=== PATIENT | female | born 1960 | race American Indian/Alaskan Native ===

== ENCOUNTER 2017-03-19 08:12 | Outpatient (CLI) | payer BC ==
--- NOTE | 2017-03-19 09:30 | Magnetic Resonance Report ---
MR LOWER EXTREMITY JOINT LEFT WITHOUT CONTRAST HISTORY: Pain in left knee. TECHNIQUE: Multisequence, multiplanar MRI without contrast. FINDINGS: A large joint effusion extends to the suprapatellar bursa. No popliteal cyst is appreciated. There is a vertical tear in the posterior horn of the medial meniscus which extends to the femoral and tibial articular surfaces. The lateral meniscus is intact. There is advanced cartilage thinning in the medial compartment. There is mild cartilage thinning in the lateral compartment. The retropatellar cartilage is within normal limits. No osteochondral defect. There is mild subchondral bone marrow edema in the medial tibial plateau and medial femoral condyle consistent with contusion. No fracture or bone lesion. The ACL, PCL, MCL, LCL complex and extensor complex are intact. IMPRESSION: Vertical tear in the posterior horn of medial meniscus as described. Cartilage loss which is most pronounced the medial compartment. Mild bone contusion in the medial tibial plateau and medial femoral condyle. Joint effusion.
== END 2017-03-19 08:13 | disposition home or self-care (01) ==
LOC: MRI 08:12
PROVIDERS: ATTEND Orthopaedic Surgery
DX: S83.242A Other tear of medial meniscus, current injury, left knee, initial encounter (principal); S80.02XA Contusion of left knee, initial encounter; I10 Essential (primary) hypertension; X58.XXXA Exposure to other specified factors, initial encounter; Y93.89 Activity, other specified; Y92.89 Other specified places as the place of occurrence of the external cause; Y99.8 Other external cause status
CPT/HCPCS: 73721

== ENCOUNTER 2017-05-08 14:14 | Emergency (ER) | payer BC | END 2017-05-08 14:15 | disposition left against medical advice (07) | LOC: ED 14:14 | DX: M54.2 Cervicalgia (principal); Z53.21 Procedure and treatment not carried out due to patient leaving prior to being seen by health care provider ==

== ENCOUNTER 2017-05-15 13:38 | Outpatient (CLI) | payer BC ==
--- NOTE | 2017-05-15 16:18 | Magnetic Resonance Report ---
MRI CERVICAL SPINE WITHOUT CONTRAST INDICATION: Cervical radiculopathy. COMPARISON: None similar. FINDINGS: Noncontrast multiplanar and multisequence MRI of the cervical spine demonstrates normal craniocervical articulation and cervicomedullary junction. No Chiari malformation. Slight T2 hyperintense cord signal behind C5 as on sagittal image 9, series 3, though not clearly identified on the T1 images. Normal vertebral body stature, alignment and marrow signal. Fairly uniform disc heights. No paraspinal abnormality. On the obtained axial images: C2-C3 is unremarkable. AP cord caliber 7 mm. C3-C4 demonstrates mild diffuse disc bulge/osteophyte complex flattening/indenting the cord ventrally. AP cord caliber approximately 5-6 mm. Right more than left neural foraminal narrowing as well. C4-C5 also demonstrates mild diffuse disc bulge/osteophyte complex with slight ventral cord indentation/flattening. AP cord caliber approximately 7 mm. Mild bilateral facet arthropathy. Right more than left possible neural foraminal narrowing. C5-C6 demonstrates mild to moderate right facet arthropathy. Slight disc bulge/osteophyte complex partially effaces the ventral CSF space. C6-C7 also demonstrates slight disc bulge/osteophyte complex partially effacing the ventral CSF. No cord compression. C7-T1 appears unremarkable. CONCLUSION: Multilevel cervical spondylosis, greatest at C3-C4 and C4-C5, as described. Neurologic territory correlation may also be obtained. Thank you for the opportunity to participate in this patient's care.
== END 2017-05-15 13:39 | disposition home or self-care (01) ==
LOC: MRI 13:38
PROVIDERS: ATTEND Physical Medicine & Rehabilitation
DX: M47.22 Other spondylosis with radiculopathy, cervical region (principal); M12.88 Other specific arthropathies, not elsewhere classified, other specified site
CPT/HCPCS: 72141

== ENCOUNTER 2019-06-13 10:05 | Outpatient (CLI) | payer BC ==
--- NOTE | 2019-06-14 11:30 | Mammography Report ---
DIGITAL SCREENING MAMMOGRAM WITH CAD, 06/13/2019 INDICATION: Routine screening mammography. TECHNIQUE: Digital bilateral 2D mammography was obtained in the craniocaudal and mediolateral obliq ue projections. This examination was interpreted with the benefit of Computer-Aided Detection analysi s. COMPARISON: 06/09/2018 FINDINGS: Breast Density: The breasts are almost entirely fatty. There is no evidence of dominant mass, suspicious calcifications or architectural distortion in eithe r breast. IMPRESSION: No mammographic evidence of malignancy. Follow up recommendation: Routine yearly BI-RADS Category 1: Negative. A "normal" or negative report should not discourage follow up or biopsy of a clinically significant f inding. A written summary of these findings will be mailed to the patient. The patient will be entered into a mammography reporting system which will generate a reminder letter for the patient's next appointmen t at the appropriate interval. The [employer] recommends yearly mammograms starting at age 40 and continuing as l gabriela as a woman is in good health. Breast MRI is recommended for women with an approximate 20-25% or greater lifetime risk of breast cancer, including women with a strong family history of breast or ova mukesh cancer or who have been treated for Hodgkin's disease. Signer Name: Manolo Neely MD Signed: 06/14/2019 11:26 AM Workstation Name: [id number]
== END 2019-06-13 10:06 | disposition home or self-care (01) ==
LOC: MAMMO 10:05
PROVIDERS: ATTEND Obstetrics & Gynecology
DX: Z12.31 Encounter for screening mammogram for malignant neoplasm of breast (principal); Z88.1 Allergy status to other antibiotic agents
CPT/HCPCS: 77067

== ENCOUNTER 2019-07-11 08:43 | Outpatient (CLI) | payer BC ==
[2019-07-11 09:26] LABS: Blood Urea Nitrogen 11 mg/dL (7-17)
--- NOTE | 2019-07-11 10:42 | Cat Scan Report ---
CT ABDOMEN AND PELVIS WITH CONTRAST HISTORY: D49.59 ENDOMETRIAL NEOPLASM/F/U RLQ PAIN. COMPARISON: CT abdomen/pelvis from 08/05/2018 TECHNIQUE: CT images of the abdomen and pelvis were obtained following administration of intravenous contrast. All CT scans at this location are performed using CT dose reduction for ALARA by means of automated exposure control. CONTRAST: 100 ml of intravenous contrast administered. FINDINGS: Lungs/bones: Lung bases are clear. There is DJD in the spine and pelvis with no acute osseous abnorm ality or osseous metastatic disease identified. Abdomen/pelvis: The gallbladder surgically absent. The liver is mildly enlarged but otherwise normal in appearance. The spleen, pancreas, adrenals, kidneys, and proximal GI tract appear unremarkable. There is a small fat-containing umbilical hernia. The urinary bladder is unremarkable. Uterus is surg ically absent. No pelvic free fluid or acute colonic abnormality identified. The terminal ileum and a ppendix appear normal. No pathologic peritoneal or retroperitoneal adenopathy. IMPRESSION: 1. No metastatic disease or acute abnormality identified. 2. Incidental findings as above. Signer Name: Hermilo Wilson MD Signed: 07/11/2019 10:38 AM Workstation Name: [id number]
== END 2019-07-11 08:44 | disposition home or self-care (01) ==
LOC: CT 08:43
PROVIDERS: ATTEND Obstetrics & Gynecology Gynecologic Oncology
DX: K42.9 Umbilical hernia without obstruction or gangrene (principal); D49.59 Neoplasm of unspecified behavior of other genitourinary organ; Z88.1 Allergy status to other antibiotic agents
CPT/HCPCS: 36415; 74177; 82565; 84520; Q9967

== ENCOUNTER 2019-11-02 08:14 | Outpatient (CLI) | payer BC ==
--- NOTE | 2019-11-02 11:53 | Cat Scan Report ---
CT ABDOMEN AND PELVIS WITHOUT CONTRAST HISTORY: Umbilical pain. COMPARISON: 07/11/2019 TECHNIQUE: Routine abdominal and pelvic CT exam performed Without intravenous contrast. Oral contrast was administered. Lack of intravenous contrast limits evaluation of the vascular and solid organs.. All CT scans at this location are performed using CT dose reduction for ALARA by means of automated exposure control. FINDINGS: CT ABDOMEN: Lung Bases: No significant abnormality. Liver: No significant abnormality. Biliary: Normal bile ducts status post cholecystectomy. Spleen: No significant abnormality. Unenlarged. Pancreas: No significant abnormality. Adrenals: No significant abnormality. Kidneys: No significant abnormality. The renal collecting systems and ureters are nondilated. Lymphatics: No lymphadenopathy. Vasculature: No significant abnormality. Bowel/Peritoneum: No significant abnormality. No free air. No free fluid. Normal appendix. CT PELVIC: : Status post hysterectomy. Ovaries are not identified. No adnexal mass or free fluid. Lymphatics: No lymphadenopathy. Osseous Structures: No aggressive appearing osseous lesions. Additional Findings: A fat-containing umbilical hernia. No bowel extends into the hernia. However, th ere is a new irregular 1 cm nodular opacity within the retroumbilical fat which may indicate inflamma tion of either mesenteric or omental fat extending into the hernia. IMPRESSION: 1. A fat containing umbilical hernia with a new 1 cm irregular nodular density within the herniated f at. This may indicate early inflammation. This also may be a finding associated with endometriosis an d would be a more likely possibility if there is a prior history of endometriosis. 2. Status post cholecystectomy and total abdominal hysterectomy. Signer Name: Manolo Neely MD Signed: 11/02/2019 11:49 AM Workstation Name: [id number]
== END 2019-11-02 08:15 | disposition home or self-care (01) ==
LOC: CT 08:14
PROVIDERS: ATTEND Internal Medicine
DX: K42.9 Umbilical hernia without obstruction or gangrene (principal); Z90.49 Acquired absence of other specified parts of digestive tract; Z90.710 Acquired absence of both cervix and uterus
CPT/HCPCS: 74176

== ENCOUNTER 2019-12-27 10:28 | Day surgery (SDC) | payer BC ==
[2019-12-23 09:29] LABS: Hematocrit 38.3 % (30.3-42.9); Hemoglobin 12.8 gm/dl (10.1-14.3); Mean Corpuscular HGB Conc 34 % (30-34); Mean Corpuscular Volume 83 fl (79-97); Platelet Count 482 K/mm3 (140-440); Red Blood Count 4.65 M/mm3 (3.65-5.03); Red Cell Distribution Width 13.6 % (13.2-15.2)
[2019-12-23 09:38] LABS: BUN/Creatinine Ratio 11; Blood Urea Nitrogen 10 mg/dL (7-17); Calcium 9.9 mg/dL (8.4-10.2); Hemolysis Index 8
--- NOTE | 2019-12-26 14:34 | Short Stay Summary ---
Short Stay Documentation Date of service: 12/27/19 - History H&P: obtained from office - Allergies and Medications Current Medications: Allergies Sulfa (Sulfonamide Antibiotics) Adverse Reaction (Verified 12/14/19 15:49) Shortness of Breath Home Medications Medication Instructions Recorded Confirmed Last Taken Type Adult Probiotic 1 tab PO DAILY 12/14/19 12/14/19 Unknown History Lisinopril/Hydrochlorothiazide 20 mg PO DAILY 12/14/19 12/14/19 Unknown History Pantoprazole Sodium 40 mg PO DAILY 12/14/19 12/14/19 Unknown History Vitamin D (Nf) 125 mg PO DAILY 12/14/19 12/14/19 Unknown History - Physical exam General appearance: no acute distress HEENT: Atraumatic Lungs: Normal air movement Neurological: Normal speech - Brief post op/procedure progress note Date of procedure: 12/27/19 (dictation:[id number]) Pre-op diagnosis: abdominal pain; incisional hernia Post-op diagnosis: same (also adhesions in center of abdomen. moderate amount of serous fluid. Lots of inflammatory changes.) Procedure: dx lap lap lysis of adhesions. attempted robotic lysis of adhesions. IVF 1200cc EBL min Anesthesia: GETA Findings: peritoneal lining with inflammatory changes. moderate amount of serous fluid in the abdomen central adhesions to anterior abdominal wall. Surgeon: RODRIGUEZ MILLARD Resident Programs Assistant: STEPHANIE NIELSON Estimated blood loss: minimal Pathology: list (fluid sample for cyto and culture) Specimen disposition: to lab Condition: stable - Hospital course Hospital course: uneventful - Disposition Condition at discharge: Stable Disposition: DC-01 TO HOME OR SELFCARE Short Stay Discharge Plan Activity: advance as tolerated Diet: regular Wound: open to air, keep clean and dry Special Instructions: no heavy lifting Additional Instructions: Post Operative Instructions Activity: no heavy lifting for next 1 week. May shower tomorrow. Pat dry the wound or wounds. Keep incision sites clean and dry After surgery, start with a light diet. Consider starting with liquids. If you do well, you can advance to a regular diet as you feel comfortable. Apply an ice pack to the wound or wounds for 10-20 minutes at a time. Do this at least 4-5 times a day. You can do it more if he would like. Pain Medication Schedule for the first 2 days after surgery: Gabapentin 400mg twice a day Celebrex (celecoxib) 200mg twice a day Tylenol 500mg four times a day (every 6 hours) After the first 2 days, then take alternating doses of ibuprofen and Tylenol as needed for pain. Take 600 mg of ibuprofen every 6 hours as needed. Take 500 mg of Tylenol every 6 hours as needed. You should alternate these 2 medicines. Make sure you take the ibuprofen with food. It is very important that you use the prescription narcotic pain medicine (hydrocodone) only for very severe pain. Do not take the narcotic medicine before you try using all the medications listed above. We will call you in a couple of days to see how youre doing. If you have any questions or concerns, always feel free to call the clinic ([phone]) at any time. Follow up with: CATIA LEE MD [Primary Care Provider] - 7 Days RODRIGUEZ MILLARD MD [Staff Physician] - 14 Days Forms: Outpatient Surgery DC Inst. Prescriptions: Celecoxib [celeBREX] 200 mg PO BID #4 capsule Gabapentin 400 mg PO BID #4 capsule HYDROcodone/APAP 5-325 [[place] 5-325 mg TAB] 1 each PO Q6HR PRN #15 tablet PRN Reason: Pain , Severe (7-10)
--- NOTE | 2019-12-27 09:39 | Anesthesia Day of Surgery ---
Anesthesia Day of Surgery - Day of Surgery Patient Examined: Yes Patient H&P Reviewed: Yes Patient is NPO: Yes
--- NOTE | 2019-12-27 09:39 | Anesthesia Consultation ---
Anesthesia Consult and Med Hx Date of service: 12/27/19 - Airway Anesthetic Teeth Evaluation: Good ROM Head & Neck: Adequate Mental/Hyoid Distance: Adequate Mallampati Class: Class III Intubation Access Assessment: Possibly Difficult - Pulmonary Exam CTA: Yes - Cardiac Exam Cardiac Exam: RRR - Pre-Operative Health Status ASA Pre-Surgery Classification: ASA3 Proposed Anesthetic Plan: General - Pulmonary Hx Asthma: Yes Hx Pneumonia: Yes (07/2019; resolved) Hx Sleep Apnea: Yes (no CPAP) - Cardiovascular System Hx Hypertension: Yes (took antihypertensives this morning) Hx Heart Attack/AMI: No Hx Percutaneous Transluminal Coronary Angioplasty (PTCA): No - Central Nervous System CVA: No Hx Back Pain: Yes Hx Psychiatric Problems: No - Endocrine Hx Renal Disease: No Hx Liver Disease: No Hx Insulin Dependent Diabetes: No Hx Non-Insulin Dependent Diabetes: No Hx Thyroid Disease: No - Other Systems Hx Cancer: Yes (hx uterine cancer s/p hysterectomy) Hx Obesity: Yes (BMI 42) - Additional Comments Anesthesia Medical History Comments: No hx anesthetic complications.
[~2019-12-27 10:28] MED LIST: ACETAMINOPHEN 500 MG TAB PO NR; ACETAMINOPHEN 500 MG TAB PO ONE; BACTERIOSTATIC SODIUM CHLORIDE 0.9% 30 ML VIAL INFILTRATI ONE; CELECOXIB 200 MG CAP PO NR; GABAPENTIN 400 MG CAP PO SCH; LACTATED RINGERS 1,000 ML IV SCH; MIDAZOLAM 2 MG/2 ML INJ IV SCH; MIDAZOLAM 2 MG/2 ML INJ ONE; ONDANSETRON 4 MG/2 ML INJ IV SCH; ONDANSETRON 4 MG/2 ML INJ ONE; SCOPOLAMINE TRANSDERMAL PATCH 72 HR TD ONE; SCOPOLAMINE TRANSDERMAL PATCH 72 HR TD SCH; ceFAZolin/Water 2 GM/20 ML 2 GM/20 ML SYRINGE IV NR; fentaNYL 100 MCG/2 ML INJ IV PRN
[2019-12-27] MEDS ORDERED: BUPIVACAINE-EPINEPHRINE/PF 0.5%-1:200,000 (30 ML) VIAL INFILTRATI ONE ×2 (11:15→13:30)
[2019-12-27] MEDS ORDERED: LIDOCAINE (1%) 10 MG/1 ML VIAL 20 ML MDV ONE (11:15)
[2019-12-27] MEDS ORDERED: ePHEDrine SULFATE 50 MG/1 ML INJ ONE (11:23)
[2019-12-27] MEDS ORDERED: SUCCINYLCHOLINE CHLORIDE 200 MG/10 ML INJ MDV ONE (11:29)
[2019-12-27] MEDS ORDERED: PHENYLEPHRINE/NS 1,000 MCG/10 ML SYRINGE (OR USE) IV ONE (11:29)
[2019-12-27] MEDS ORDERED: ONDANSETRON 4 MG/2 ML INJ ONE (11:29)
[2019-12-27] MEDS ORDERED: GLYCOPYRROLATE 0.4 MG/2 ML INJ ONE ×2 (11:29→11:30)
[2019-12-27] MEDS ORDERED: NEOSTIGMINE 10MG/10 ML INJ MDV ONE (11:29)
[2019-12-27] MEDS ORDERED: ROCURONIUM 50 MG/5 ML INJ IV ONE (11:29)
[2019-12-27] MEDS ORDERED: fentaNYL 100 MCG/2 ML INJ ONE (11:29)
[2019-12-27] MEDS ORDERED: LIDOCAINE MPF (2%) 20 MG/1 ML VIAL 5 ML ONE (11:29)
[2019-12-27] MEDS ORDERED: HYDROmorphone 1 MG/1 ML INJ ONE ×2 (11:30→13:42)
[2019-12-27] MEDS ORDERED: propofoL 200 MG/20 ML VIAL IV ONE (11:30)
[2019-12-27] MEDS ORDERED: KETOROLAC 30 MG/1 ML INJ ONE (13:27)
[2019-12-27] MEDS ORDERED: LIDOCAINE (1%) 10 MG/1 ML VIAL 20 ML MDV INFILTRATI ONE (13:30)
[2019-12-27] MEDS ORDERED: WATER FOR IRRIG STERILE 1,500 ML BOTTLE IR ONE (13:30)
[2019-12-27] MEDS ORDERED: SODIUM CHLORIDE 0.9% IRR 1,500 ML BOTTLE IR ONE (13:30)
[2019-12-27] MEDS ORDERED: SUGAMMADEX SODIUM 200 MG/2 ML VIAL IV ONE (14:04)
[2019-12-27] MEDS ORDERED: ONDANSETRON 4 MG/2 ML INJ IV PRN (14:08)
[2019-12-27] MEDS ORDERED: HYDROcodone/ACETAMINOPHEN 5-325 MG TAB PO PRN (14:54)
[2019-12-27 15:57] VITALS: BP 108/49
[2019-12-27 16:00] LABS: Total Cells Counted 100 /mm3
[2019-12-27] MEDS ORDERED: METOCLOPRAMIDE 10 MG/2 ML INJ IV PRN (16:08)
[2019-12-27] MEDS ORDERED: METOCLOPRAMIDE 10 MG/2 ML INJ ONE (16:08)
--- NOTE | 2019-12-27 17:09 | Operative Report ---
PREOPERATIVE DIAGNOSES: 1. Incisional hernia. 2. Abdominal pain. POSTOPERATIVE DIAGNOSES: 1. Incisional hernia. 2. Abdominal pain. 3. Moderate amount of serous fluid in the abdomen. 4. Inflammatory changes of the peritoneum and omentum. PROCEDURE: 1. Diagnostic laparoscopy. 2. Laparoscopic lysis of adhesions. 3. Attempted robotic-assisted laparoscopic lysis of adhesions. ATTENDING PHYSICIAN: Maude Narayanan MD GAUGE MACHINE OPERATOR: Dr. German. ANESTHESIA: General. ESTIMATED BLOOD LOSS: Minimal. FLUIDS: 1200 mL. FINDINGS: Moderate amount of adhesions in the central abdomen at the site of her incisional hernia. Rest of the abdomen had no adhesions, but she did have a moderate amount of serous fluid in the abdomen. The peritoneum had signs of inflammatory changes, adjacent bowel to the adhesions appeared to be mildly injected. The omental tissue at the incisional hernia appeared to be chronically inflamed. As mentioned, the surrounding area had absolutely no adhesions. No other abnormalities were appreciated. SPECIMEN: Peritoneal fluid was aspirated for cytology and culture. DRAINS: None. COMPLICATIONS: None. DISPOSITION: Stable, transferred to Recovery Room. INDICATIONS: This is a 59-year-old female who presented to the office with complaints of abdominal pain. She reports that she had been evaluated by multiple different providers without any explanation for pain. Her primary referred her to General Surgery for consideration of adhesions as a cause for her pain. On CT scan, she was noted to have an incisional hernia. We discussed it may be worthwhile to repair that first to see if it helps with her pain and then see if there were any adhesions that we may be able to safely take care of. Procedure, risks, benefits were explained to the patient. Risks include but were not limited to infection, bleeding, pain, injury to surrounding structures, possible need for further procedures in the future, possible nonresolution of her pain. The patient understood and consented. OPERATIVE NOTE: The patient was brought to the operating room and placed on the table in supine position. After adequate general anesthesia was established, the patient was prepped and draped in the usual sterile fashion. SCDs were in place. Antibiotics have been given. Pressure points were padded. I began after time-out by placing a Veress needle in left upper quadrant. I was able to insufflate on the first attempt. This was replaced with a 5 mm port using the Optiview technique. We entered the peritoneal cavity safely. There was no injury to the underlying structures. We immediately encountered a large amount of adhesions in the central part of the abdomen at the site of her incisional hernia. We had very little room to see. With the camera itself, I was able to gently push down some of the adhesions to create a little bit of space. We ultimately with great care, we were able to place a 12 mm port in the mid portion of the left side of the abdomen, an 8 mm port in the left lower quadrant and then replaced the 5 mm port with an 8. We tried the setting of the robot. However, there was essentially no space for us to put the camera through 12 mm port and works safely. Therefore, we aborted this attempt and stayed laparoscopic. We placed another 5 mm port under direct vision in the right upper quadrant. With that, I was able to bluntly take down at least half of the adhesions. We used the Harmonic scalpel. In some instances, we took great care to make sure we checked from multiple angles if there is any bowel in areas where we were going to dissect. The only bowel that was close to the adhesions was adjacent to the 12 mm port. We were able to get that out safely. We examined the bowel very carefully, both Dr. German and I were in agreement that the bowel integrity had not been violated. There was only scar tissue above it that was divided. We ultimately got down to the site of the incisional hernia. I tried to reduce the contents. However, it appeared to be densely adhered in that area. We removed as much as we could. Interestingly, the whole area seemed to be one uniform plane of tissue. We did not necessarily see fascial edges. We had gotten down all the adhesions. We checked for hemostasis. As a precaution, I placed Joe in that area in case there was any delayed oozing or bleeding. Please note at the beginning of the case, we did aspirate the fluid in the abdomen and sent it for cytology and culture. We discussed that with these inflammatory changes that there was a possibility she could have some low-grade infection. It did not seem blanchard to try and dissect out the hernia and repair it for fear that the mesh would get infected. The other thought was with this large amount of adhesions she had in the central portion of the abdomen, perhaps that was the cause of her pain, we felt the most prudent course would be to see how she responds to the lysis of adhesions and wait for the results of the fluid evaluation to come back. If there are no signs of infection and she continues to have pain, then we would bring her back to the operating room for a hernia repair. Once we were assured that everything looked good, we thoroughly washed out the abdomen, aspirated as much fluid as possible. Please note we did this before the Joe was placed. We then removed the 12 mm port. We had already placed a closing stitch at the beginning of the case, it was a 2-0 PDS suture. This was tied down. We had no air leak. Everything looked good. We removed the rest of the ports, desufflated the abdomen. We injected additional local into all the port sites and closed the skin with a 4-0 Monocryl subcuticular stitch. Skin was cleaned and dried. Dermabond was placed. The patient tolerated the procedure well. There were no complications. All counts were correct at the end of the case. JOB# [id number] MADY/RA
--- NOTE | 2019-12-27 19:41 | Post Anesthesia Evaluation ---
- Post Anesthesia Evaluation Patient Participated: Yes Airway Patent: Yes Stable Respiratory Function: Yes Nausea/Vomiting: Yes (antiemetic given) Temp > 96.8F: Yes Pain Manageable: Yes Adequeate Hydration: Yes Anesthesia Complications: No
== END 2019-12-27 16:35 | disposition home or self-care (01) ==
LOC: OR 10:28
PROVIDERS: ATTEND Surgery
DX: R10.9 Unspecified abdominal pain (principal); K43.2 Incisional hernia without obstruction or gangrene; K66.0 Peritoneal adhesions (postprocedural) (postinfection); I10 Essential (primary) hypertension; J45.909 Unspecified asthma, uncomplicated; G43.909 Migraine, unspecified, not intractable, without status migrainosus; E78.00 Pure hypercholesterolemia, unspecified; G47.30 Sleep apnea, unspecified; K21.9 Gastro-esophageal reflux disease without esophagitis; M19.90 Unspecified osteoarthritis, unspecified site; Z11.59 Encounter for screening for other viral diseases; E66.9 Obesity, unspecified; Z88.2 Allergy status to sulfonamides; Z79.899 Other long term (current) drug therapy; Z90.710 Acquired absence of both cervix and uterus; Z87.440 Personal history of urinary (tract) infections; Z72.89 Other problems related to lifestyle; Z90.49 Acquired absence of other specified parts of digestive tract; Z98.890 Other specified postprocedural states; Z86.2 Personal history of diseases of the blood and blood-forming organs and certain disorders involving the immune mechanism
CPT/HCPCS: 36415; 49329; 80048; 85027; 87116; 89051; J0330; J0690; J1170; J1885; J2250; J2370; J2405; J2704; J2710; J2765; J3010; J7120; S2900; U0003

== ENCOUNTER 2020-01-26 09:58 | Emergency (ER) | payer BC ==
--- NOTE | 2020-01-26 10:24 | Event Note ---
ED Screening Note Date of service: 01/26/20 Time: 10:20 ED Screening Note: 59-year-old -[place] female presents to the emergency room for nausea and vomiting status post surgery [address] Narayanan performed her surgery. Patient reports she saw her primary medical doctor today and was referred to the emergency room for a CT scan and lab work. Denies any pain but has nausea. No fevers no chills. This initial assessment/diagnostic orders/clinical plan/treatment(s) is/are subject to change based on patients health status, clinical progression and re- assessment by fellow clinical providers in the ED. Further treatment and workup at subsequent clinical providers discretion. Patient/guardian urged not to elope from the ED as their condition may be serious if not clinically assessed and managed. Initial orders include:
[2020-01-26 11:27] LABS: Basophils # (Auto) 0.1 K/mm3 (0.0-0.1); Basophils % (Auto) 0.6 % (0.0-1.8); Eosinophils # (Auto) 0.1 K/mm3 (0.0-0.4); Eosinophils % (Auto) 0.9 % (0.0-4.3); Hematocrit 40.7 % (30.3-42.9); Hemoglobin 13.2 gm/dl (10.1-14.3); Lymphocytes # (Auto) 2.7 K/mm3 (1.2-5.4); Mean Corpuscular HGB Conc 32 % (30-34); Mean Corpuscular Volume 83 fl (79-97); Monocytes % (Auto) 10.6 % (0.0-7.3); Platelet Count 469 K/mm3 (140-440); Red Blood Count 4.91 M/mm3 (3.65-5.03)
[2020-01-26 11:36] LABS: Alanine Aminotransferase 19 units/L (7-56); Albumin 4.6 g/dL (3.9-5); BUN/Creatinine Ratio 10; Blood Urea Nitrogen 10 mg/dL (7-17); Calcium 10.4 mg/dL (8.4-10.2); Hemolysis Index 5
[2020-01-26] MEDS ORDERED: SODIUM CHLORIDE 0.9% 1000 ML 1,000 ML IV ONE (11:48)
[2020-01-26] MEDS ORDERED: ONDANSETRON 4 MG/2 ML INJ IV ONE (11:48)
[2020-01-26 11:51] LABS: Bilirubin,Urine NEG (Negative); Blood,Urine NEG (Negative); Color,Urine Yellow (Yellow); Mucus,Urine FEW /HPF; Protein,Urine <15 mg/dL mg/dL (Negative); Urobilinogen,Urine < 2.0 mg/dL (<2.0)
--- NOTE | 2020-01-26 11:52 | Emergency Department Report ---
HPI - General Chief Complaint: Nausea/Vomiting/Diarrhea Time Seen by Provider: 01/26/20 11:23 - HPI HPI: 59-year-old female presents to the emergency department with complaint of a 2- week history of nausea and vomiting. Patient had surgery done here on 12/27/[address] Millard for an incisional hernia. The postoperative diagnosis also shows that he cleaned up adhesions and drained a seroma. The patient has been taking Zofran ODT as needed for her symptoms. She has vomiting with both liquids and solids. She denies any significant abdominal pain but says "it just feels queasy." She went to see her primary care physician today, Dr. Jolene jennings, who told her to come to the emergency department for further evaluation. She has a past medical history of osteoarthritis, migraines, GERD, hypertension. No sick contacts at home. ED Past Medical Hx - Past Medical History Previous Medical History?: Yes Hx Hypertension: Yes (took antihypertensives this morning) Hx Heart Attack/AMI: No Hx GERD: Yes Hx Liver Disease: No Hx Renal Disease: No Hx Sickle Cell Disease: No Hx Arthritis: Yes (JAMAR. KNEES) Hx Headaches / Migraines: Yes (MIGRAINES) Hx Asthma: Yes Hx Tuberculosis: Yes (POSITIVE SKIN TEST,TOOK TX,NEG CXR 2000) Hx HIV: No - Surgical History Past Surgical History?: Yes Hx Cholecystectomy: Yes Additional Surgical History: Surgery to remove adhesions - Social History Smoking Status: Never Smoker Substance Use Type: None - Medications Home Medications: Home Medications Medication Instructions Recorded Confirmed Last Taken Type Adult Probiotic 1 tab PO DAILY 12/14/19 12/14/19 12/25/19 History Lisinopril/Hydrochlorothiazide 20 mg PO DAILY 12/14/19 12/14/19 12/27/19 06:00 History Pantoprazole Sodium 40 mg PO DAILY 12/14/19 12/14/19 12/27/19 06:00 History Vitamin D (Nf) 125 mg PO DAILY 12/14/19 12/14/19 12/25/19 History Celecoxib [celeBREX] 200 mg PO BID #4 capsule 12/27/19 Unknown Rx Gabapentin 400 mg PO BID #4 capsule 12/27/19 Unknown Rx HYDROcodone/APAP 5-325 [Lester 1 each PO Q6HR PRN #15 tablet 12/27/19 Unknown Rx 5-325 mg TAB] Metoclopramide [Reglan] 10 mg PO TID PRN #20 tab 01/26/20 Unknown Rx Nitrofurantoin Craven/M-Cryst 100 mg PO Q12HR #14 capsule 01/26/20 Unknown Rx [Macrobid CAP] ED Review of Systems ROS: Stated complaint: POST SURGERY N/V Other details as noted in HPI Comment: All other systems reviewed and negative Constitutional: denies: chills, fever Eyes: denies: eye pain, vision change ENT: denies: ear pain, throat pain Respiratory: denies: cough, wheezing Cardiovascular: denies: chest pain, palpitations Gastrointestinal: nausea, vomiting Genitourinary: denies: dysuria, discharge Musculoskeletal: denies: back pain, arthralgia Skin: denies: rash, lesions Neurological: denies: headache, weakness Physical Exam - Physical Exam Vital Signs: Vital Signs 01/26/20 10:03 Temperature 98.5 F Pulse Rate 99 H Respiratory 20 Rate Blood Pressure 113/74 O2 Sat by Pulse 97 Oximetry Physical Exam: GENERAL: The patient is well-developed well-nourished. HENT: Normocephalic. Atraumatic. Patient has moist mucous membranes. EYES: Extraocular motions are intact. NECK: Supple. Trachea is midline. CHEST/LUNGS: Clear to auscultation. There is no respiratory distress noted. HEART/CARDIOVASCULAR: Regular. There is no tachycardia. ABDOMEN: Abdomen is soft, nontender. Patient has normal bowel sounds. Obese habitus. SKIN: Skin is warm and dry. NEURO: The patient is awake, alert, and oriented. The patient is cooperative. The patient has no focal neurologic deficits. Normal speech. MUSCULOSKELETAL: There is no tenderness or deformity. There is no evidence of acute injury. ED Course Vital Signs 01/26/20 10:03 Temperature 98.5 F Pulse Rate 99 H Respiratory 20 Rate Blood Pressure 113/74 O2 Sat by Pulse 97 Oximetry - Consultations Consultation #1: 01/26/20 19:09 I spoke with the general surgeon, Dr. Millard, regarding the patient's CT findings of ascites and some mesenteric and peritoneal inflammation. Dr. Millard says patient symptoms are the same as prior to her surgery, and the CT findings are consistent with what was seen during the surgery. He also says that they sent samples of the ascites or serous fluid and it came back showing nonspecific inflammation. However, given the labs, physical examination, vital signs, and CT scan results, the patient appears safe for discharge home at this time for further outpatient evaluation. ED Medical Decision Making - Lab Data Result diagrams: 01/26/20 10:31 01/26/20 10:31 - EKG Data -: EKG Interpreted by Me EKG shows normal: sinus rhythm, axis (left axis deviation), intervals, QRS complexes (LVH), ST-T waves Rate: normal - EKG Data When compared to previous EKG there are: previous EKG unavailable Interpretation: LVH - Radiology Data Radiology results: report reviewed CT OF THE ABDOMEN AND PELVIS WITH INTRAVENOUS CONTRAST INDICATION / CLINICAL INFORMATION: Abdominal pain for 3 days. TECHNIQUE: The patient received 100 cc Omnipaque [address] scans at this location are performed using CT dose reduction for ALARA by means of automated exposure control. COMPARISON: 11/02/2019. FINDINGS: ABDOMEN: There has been interval development of moderate generalized ascites. There is slight loculation with mass effect on the liver. Slight associated peritoneal thickening is present. There is moderate soft tissue stranding throughout the omental and mesenteric fat. No extraluminal gas is seen. There is a small left pleural effusion. There is left basilar compressive atelectasis and bibasilar subsegmental atelectasis. There is mild diffuse fatty infiltration of the liver. The gallbladder is surgically absent. The bile ducts, pancreas, spleen, adrenal glands and kidneys are normal. I see no evidence of bowel obstruction. No adenopathy is identified. PELVIS: There is pelvic ascites. The distal ureters and urinary bladder are normal. The uterus and ovaries are not identified. There is no evidence of appendicitis or divertic ulitis. A small periumbilical hernia with mild increased density in the hernia sac is stable. No acute osseous abnormality is seen. IMPRESSION: 1. Interval development of moderate ascites which is somewhat loculated in appearance and demonstrates mild associated peritoneal thickening. There is associated soft tissue stranding in the mesenteric and peritoneal fat. Peritonitis should be considered. 2. Small left pleural effusion and associated compressive atelectasis. Bibasilar subsegmental atelectasis. - Medical Decision Making This patient presents to the emergency department with a complaint of nausea and vomiting. She denies any significant abdominal pain. And on examination the abdomen is soft, nontender to palpation, and nontoxic in appearance. Patient's labs have been unremarkable. A CT scan of the abdomen and pelvis with IV contrast was completed that showed a moderate amount of ascites and some inflammation to the peritoneal and mesenteric fat. As per the consultation section, I had a long discussion with the general surgeon who is both on-call and did this patient's recent surgery, and the patient is safe for discharge home and outpatient follow-up. The patient was given 2 doses of antiemetics and appears improved and was able to pass an oral challenge. She will be discharged home with a prescription for antiemetics and a referral for gastroenterology. She will return to the ER with any worsening of her symptoms or any acute distress. Critical Care Time: No Critical care attestation.: If time is entered above; I have spent that time in minutes in the direct care of this critically ill patient, excluding procedure time. ED Disposition Clinical Impression: Nausea & vomiting Qualifiers: Vomiting type: unspecified Vomiting Intractability: non-intractable Qualified Code(s): R11.2 - Nausea with vomiting, unspecified Ascites Qualifiers: Ascites type: other type Qualified Code(s): R18.8 - Other ascites UTI (urinary tract infection) Qualifiers: Urinary tract infection type: acute cystitis Hematuria presence: without hematuria Qualified Code(s): N30.00 - Acute cystitis without hematuria Disposition: - TO HOME OR SELFCARE Is pt being admited?: No Condition: Stable Instructions: Acute Nausea and Vomiting (ED), Ascites (ED) Additional Instructions: It is always recommended that you follow-up with your primary care physician. However, I feel that you also need to follow-up with a regional geodetic advisor regarding the chronic nausea and vomiting, as well as the ascites found on your CT scan. I have given you a referral for 2 different local gastroenterology groups. Return to the emergency department with any worsening of your symptoms or any acute distress. Take the antibiotics as prescribed for your urinary tract infection. Prescriptions: Nitrofurantoin Craven/M-Cryst [Macrobid CAP] 100 mg PO Q12HR #14 capsule Metoclopramide [Reglan] 10 mg PO TID PRN #20 tab PRN Reason: Nausea Referrals: RODRIGUEZ MILLARD MD [Staff Physician] - 3-5 Days [facility] [Provider Group] - 3-5 Days [facility] [Provider Group] - 3-5 Days Forms: Work/School Release Form(ED) Time of Disposition: 14:15
--- NOTE | 2020-01-26 12:34 | Cat Scan Report ---
CT OF THE ABDOMEN AND PELVIS WITH INTRAVENOUS CONTRAST INDICATION / CLINICAL INFORMATION: Abdominal pain for 3 days. TECHNIQUE: The patient received 100 cc Omnipaque [address] scans at this location are performed using CT dose reduction for ALARA by means of automated exposure control. COMPARISON: 11/02/2019. FINDINGS: ABDOMEN: There has been interval development of moderate generalized ascites. There is slight loculat ion with mass effect on the liver. Slight associated peritoneal thickening is present. There is moder ate soft tissue stranding throughout the omental and mesenteric fat. No extraluminal gas is seen. The re is a small left pleural effusion. There is left basilar compressive atelectasis and bibasilar subs egmental atelectasis. There is mild diffuse fatty infiltration of the liver. The gallbladder is surgically absent. The bile ducts, pancreas, spleen, adrenal glands and kidneys are normal. I see no evidence of bowel obstructi on. No adenopathy is identified. PELVIS: There is pelvic ascites. The distal ureters and urinary bladder are normal. The uterus and ov yesenia are not identified. There is no evidence of appendicitis or diverticulitis. A small periumbilic al hernia with mild increased density in the hernia sac is stable. No acute osseous abnormality is se en. IMPRESSION: 1. Interval development of moderate ascites which is somewhat loculated in appearance and demonstrate s mild associated peritoneal thickening. There is associated soft tissue stranding in the mesenteric and peritoneal fat. Peritonitis should be considered. 2. Small left pleural effusion and associated compressive atelectasis. Bibasilar subsegmental atelect asis. Signer Name: Lester Presley MD Signed: 01/26/2020 12:30 PM Workstation Name: [id number]
[2020-01-26] MEDS ORDERED: NITROFURANTOIN MONOHYD/M-CRYST 100 MG CAP PO ONE (12:47)
[2020-01-26] MEDS ORDERED: METOCLOPRAMIDE 10 MG/2 ML INJ IV ONE (13:02)
[2020-01-26 14:49] VITALS: BP 136/91
== END 2020-01-26 15:17 | disposition home or self-care (01) ==
LOC: ED 09:58
DX: R18.8 Other ascites (principal); N39.0 Urinary tract infection, site not specified; R11.2 Nausea with vomiting, unspecified; I10 Essential (primary) hypertension; K21.9 Gastro-esophageal reflux disease without esophagitis; M17.0 Bilateral primary osteoarthritis of knee; G43.909 Migraine, unspecified, not intractable, without status migrainosus; J45.909 Unspecified asthma, uncomplicated
CPT/HCPCS: 36415; 74177; 80053; 81001; 85025; 87086; 93005; 96361; 96374; 96375; 99284; J2405; J2765; J7030; Q9967

== ENCOUNTER 2020-04-23 08:25 | Outpatient (CLI) | payer BC ==
[2020-04-23 10:00] LABS: INR 1.01 (0.87-1.13); Partial Thromboplastin Time 25.4 Sec. (24.2-36.6)
--- NOTE | 2020-04-23 12:06 | Short Stay Summary ---
Short Stay Documentation Date of service: 04/23/20 Narrative H&P: cervical CA, ascites - History Principal diagnosis: ascites Past Medical History: cancer (cervical) - Allergies and Medications Current Medications: Allergies coconut oil Allergy (Intermediate, Verified 03/13/20 09:15) Hives Sulfa (Sulfonamide Antibiotics) Allergy (Intermediate, Verified 03/13/20 09:15) Shortness of Breath aspirin Adverse Reaction (Unverified 03/13/20 09:15) Nausea Home Medications Medication Instructions Recorded Confirmed Last Taken Type Lisinopril/Hydrochlorothiazide 20 mg PO DAILY 12/14/19 04/23/20 02/12/20 History 20 mg raNITIdine HCl [Zantac] 150 mg PO DAILY PRN 02/13/20 04/23/20 04/20/20 History 150 mg Clindamycin [Clindamycin CAP] 300 mg PO Q8H 04/23/20 04/23/20 04/21/20 History 300 mg Furosemide [Lasix TAB] 20 mg PO PRN PRN 04/23/20 04/23/20 04/20/20 History 20 mg Ondansetron HCl [Zofran] 4 mg PO Q4H PRN 04/23/20 04/23/20 04/23/20 09:37 History 4 mg dexAMETHasone [Dexamethasone] 2 tab PO BID 04/23/20 04/23/20 04/15/20 History 2 tab - Physical exam General appearance: no acute distress Gastrointestinal: distended - Brief post op/procedure progress note Date of procedure: 04/23/20 Pre-op diagnosis: ascites Post-op diagnosis: same Procedure: US paracentesis Anesthesia: local Findings: moderate ascites Surgeon: AMY JACKSON Estimated blood loss: none Pathology: list (120cc) Specimen disposition: to lab Condition: stable - Hospital course Hospital course: uneventful - Disposition Condition at discharge: Good Disposition: DC-01 TO HOME OR SELFCARE Short Stay Discharge Plan Follow up with: CATIA LEE MD [Primary Care Provider] - 7 Days
[2020-04-23] MEDS ORDERED: ALBUMIN HUMAN 25% (25 GM/100 ML) INJ IV PRN (12:20)
--- NOTE | 2020-04-23 13:50 | Ultrasound Report ---
ULTRASOUND-GUIDED PARACENTESIS HISTORY: Ascities. PROCEDURE: The risks (including but not limited to bleeding, infection, and bowel injury) and benefi ts were explained to the patient and informed consent was obtained. A time out procedure was perform ed. Ultrasound was used to evaluate the abdomen and locate the largest ascites fluid pocket. Once the sk in was marked, the procedure site was prepped and draped in the usual sterile fashion and lidocaine w as used for local anesthesia. A skin elle was made and a 5 Ethiopian centesis catheter was placed. The patient was monitored closely throughout the procedure, and a total of 2700 mL of blood-tinged fluid was aspirated. Samples were collected for laboratory analysis. The patient tolerated the procedure well with no complications. IMPRESSION: Successful ultrasound-guided paracentesis as described. Signer Name: Jose Ramon King Jr, MD Signed: 04/23/2020 1:46 PM Workstation Name: [id number]
[2020-04-23 15:33] VITALS: BP 149/85
== END 2020-04-23 08:26 | disposition home or self-care (01) ==
LOC: CATHLABREC 08:25
PROVIDERS: ATTEND Internal Medicine Hematology & Oncology
DX: R18.8 Other ascites (principal); I10 Essential (primary) hypertension; K21.9 Gastro-esophageal reflux disease without esophagitis; G43.909 Migraine, unspecified, not intractable, without status migrainosus; E78.00 Pure hypercholesterolemia, unspecified; J45.909 Unspecified asthma, uncomplicated; E66.9 Obesity, unspecified; M19.90 Unspecified osteoarthritis, unspecified site; D64.9 Anemia, unspecified; Z88.2 Allergy status to sulfonamides; Z88.6 Allergy status to analgesic agent; Z87.440 Personal history of urinary (tract) infections; Z79.899 Other long term (current) drug therapy; Z87.01 Personal history of pneumonia (recurrent); Z90.49 Acquired absence of other specified parts of digestive tract; Z90.710 Acquired absence of both cervix and uterus; Z85.42 Personal history of malignant neoplasm of other parts of uterus; Z98.890 Other specified postprocedural states; Z88.8 Allergy status to other drugs, medicaments and biological substances
CPT/HCPCS: 36415; 49083; 85610; 85730; 88112; 88305

== ENCOUNTER 2020-05-21 08:44 | Day surgery (SDC) | payer BC ==
[2020-05-21 10:01] VITALS: BP 113/74
[2020-05-21 11:44] LABS: INR 0.94 (0.87-1.13); Partial Thromboplastin Time 26.6 Sec. (24.2-36.6)
--- NOTE | 2020-05-21 14:00 | Ultrasound Report ---
US abdomen limited INDICATION / CLINICAL INFORMATION: PLEASE ASSESSFOR PARACENTESIS. COMPARISON: CT 01/26/2020 FINDINGS: No significant ascites. IMPRESSION: 1. There is no significant ascites. Therefore, paracentesis could not be performed. Signer Name: Celso Glynn MD Signed: 05/21/2020 1:55 PM Workstation Name: [id number]
== END 2020-05-21 13:00 | disposition home or self-care (01) ==
LOC: US 08:44 → CATHLABREC 08:44 → EDSTATUS 09:00 → CATHLABREC 13:00
PROVIDERS: ATTEND Internal Medicine Hematology & Oncology
DX: R18.8 Other ascites (principal); Z53.8 Procedure and treatment not carried out for other reasons; I10 Essential (primary) hypertension; K21.9 Gastro-esophageal reflux disease without esophagitis; M19.90 Unspecified osteoarthritis, unspecified site; G43.909 Migraine, unspecified, not intractable, without status migrainosus; J45.909 Unspecified asthma, uncomplicated; E78.00 Pure hypercholesterolemia, unspecified; G47.30 Sleep apnea, unspecified; E66.9 Obesity, unspecified; Z88.8 Allergy status to other drugs, medicaments and biological substances; Z88.2 Allergy status to sulfonamides; Z87.440 Personal history of urinary (tract) infections; Z79.899 Other long term (current) drug therapy; Z87.01 Personal history of pneumonia (recurrent); Z90.710 Acquired absence of both cervix and uterus; Z72.89 Other problems related to lifestyle; Z98.890 Other specified postprocedural states; Z86.2 Personal history of diseases of the blood and blood-forming organs and certain disorders involving the immune mechanism; Z68.35 Body mass index [BMI] 35.0-35.9, adult
CPT/HCPCS: 36415; 76705; 85610; 85730

== ENCOUNTER 2020-05-22 13:00 | Outpatient (CLI) | payer BC ==
[2020-05-29 11:18] LABS: Blood Urea Nitrogen 8 mg/dL (7-17)
== END 2020-05-22 13:01 | disposition home or self-care (01) ==
LOC: CT 13:00
PROVIDERS: ATTEND Internal Medicine Hematology & Oncology
DX: C54.1 Malignant neoplasm of endometrium (principal)
CPT/HCPCS: 36415; 82565; 84520

== ENCOUNTER 2020-06-14 09:49 | Outpatient (CLI) | payer BC ==
--- NOTE | 2020-06-14 13:10 | Mammography Report ---
DIGITAL SCREENING MAMMOGRAM WITH CAD, 06/14/2020 INDICATION: Routine screening mammography. TECHNIQUE: Digital bilateral 2D mammography was obtained in the craniocaudal and mediolateral obliq ue projections. This examination was interpreted with the benefit of Computer-Aided Detection analysi s. COMPARISON: 06/13/2019, 06/09/2018, 04/10/2016 FINDINGS: Breast Density: The breasts are almost entirely fatty. There is no evidence of dominant mass, suspicious calcifications or architectural distortion in eithe r breast. IMPRESSION: Follow up recommendation: Routine yearly BI-RADS Category 1: Negative. A "normal" or negative report should not discourage follow up or biopsy of a clinically significant f inding. A written summary of these findings will be mailed to the patient. The patient will be entered into a mammography reporting system which will generate a reminder letter for the patient's next appointmen t at the appropriate interval. The [employer] recommends yearly mammograms starting at age 40 and continuing as l gabriela as a woman is in good health. Breast MRI is recommended for women with an approximate 20-25% or greater lifetime risk of breast cancer, including women with a strong family history of breast or ova mukesh cancer or who have been treated for Hodgkin's disease. Signer Name: Brenda Alfaro MD Signed: 06/14/2020 1:06 PM Workstation Name: [email or web address]
== END 2020-06-14 09:50 | disposition home or self-care (01) ==
LOC: MAMMO 09:49
PROVIDERS: ATTEND Obstetrics & Gynecology
DX: Z12.31 Encounter for screening mammogram for malignant neoplasm of breast (principal)
CPT/HCPCS: 77067

== ENCOUNTER 2020-07-10 10:27 | Outpatient (CLI) | payer BC | END 2020-07-10 10:28 | disposition home or self-care (01) | LOC: ECHO 10:27 | PROVIDERS: ATTEND Psychiatry & Neurology Child & Adolescent Psychiatry | DX: I08.1 Rheumatic disorders of both mitral and tricuspid valves (principal) | CPT/HCPCS: 93306 ==

== ENCOUNTER 2020-07-24 09:24 | Outpatient (CLI) | payer BC ==
[2020-07-24 10:53] LABS: Blood Urea Nitrogen 12 mg/dL (7-17)
--- NOTE | 2020-07-24 13:08 | Cat Scan Report ---
CT CHEST, ABDOMEN, AND PELVIS WITH IV CONTRAST INDICATION / CLINICAL INFORMATION: HYPOKALEMIA. TECHNIQUE: Axial CT images were obtained through the chest, abdomen, and pelvis after IV contrast. All CT scans at this location are performed using CT dose reduction for ALARA by means of automated exposure contr ol. COMPARISON: CT abdomen pelvis dated 01/26/20 FINDINGS: HEART: No significant abnormality. CORONARY ARTERY CALCIFICATION: Mild. THORACIC AORTA: No significant abnormality. MEDIASTINUM / MATT: No significant abnormality. PLEURA: No pleural effusion. No pneumothorax. LUNGS: No acute air space or interstitial disease. ADDITIONAL CHEST FINDINGS: Incidental thyroid nodule off the lower pole of the left lobe extending in to the superior mediastinum measuring 1.6 x 1.7 cm on axial series 2 image 14. Right Port-A-Cath in e xpected position. LIVER: No significant abnormality. GALLBLADDER: Surgically absent. BILE DUCTS: No significant abnormality. PANCREAS: No significant abnormality. SPLEEN: No significant abnormality. ADRENALS: No significant abnormality. RIGHT KIDNEY / URETER: No significant abnormality. LEFT KIDNEY / URETER: No significant abnormality. STOMACH and SMALL BOWEL: No significant abnormality. COLON: No significant abnormality. APPENDIX: No significant abnormality. PERITONEUM: No free fluid. Interval resolution of ascites. No free air. No fluid collection. LYMPH NODES: No significant adenopathy. AORTA / ARTERIES: No significant abnormality. IVC / VEINS: No significant abnormality. URINARY BLADDER: No significant abnormality. REPRODUCTIVE ORGANS: Uterus is absent. No significant adnexal abnormality. ADDITIONAL FINDINGS: None. SKELETAL SYSTEM: No significant abnormality. IMPRESSION: 1. No acute process in the chest, abdomen, or pelvis. 2. Interval resolution of ascites. 3. Incidental thyroid nodule in left lobe measuring 1.7 cm in patient equal to or over age 35. Recomm endation based on ACR guidelines: Diagnostic thyroid ultrasound. Signer Name: Manjeet Casillas MD Signed: 07/24/2020 1:04 PM Workstation Name: [employer]
== END 2020-07-24 09:25 | disposition home or self-care (01) ==
LOC: CT 09:24
PROVIDERS: ATTEND Internal Medicine Hematology & Oncology
DX: C54.1 Malignant neoplasm of endometrium (principal); E87.6 Hypokalemia; R18.8 Other ascites; E04.1 Nontoxic single thyroid nodule; I25.10 Atherosclerotic heart disease of native coronary artery without angina pectoris
CPT/HCPCS: 36415; 71260; 74177; 82565; 84520; Q9967

== ENCOUNTER 2021-02-22 10:36 | Outpatient (CLI) | payer BC ==
--- NOTE | 2021-02-22 13:06 | Cat Scan Report ---
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 TECHNIQUE: Axial CT images were obtained through the chest without contrast. Sagittal and coronal reformatted im ages. All CT scans at this location are performed using CT dose reduction for ALARA by means of autom ated exposure control. COMPARISON: 07/24/2020 FINDINGS: HEART: Her size remains within normal limits. Right Rsbvzr-[id number]-Odcw remains in good position. THORACIC AORTA: No significant abnormality. MEDIASTINUM and MATT: No significant abnormality. LUNGS: No acute air space or interstitial disease. No suspicious pulmonary lesion is detected. PLEURA: No significant pleural effusion. No pneumothorax. SKELETAL SYSTEM: Stable mild thoracic spondylosis. No suspicious bony lesion is detected. UPPER ABDOMEN: No significant abnormality. ADDITIONAL FINDINGS: None. IMPRESSION: Stable findings since 06/24/2020. No evidence for metastatic disease to the chest. Signer Name: Jose Ramon King Jr, MD Signed: 02/22/2021 1:02 PM Workstation Name: [id number]
--- NOTE | 2021-02-22 14:29 | Cat Scan Report ---
CT ABDOMEN AND PELVIS WITHOUT CONTRAST INDICATION / CLINICAL INFORMATION: EXTRAOVARIAN PRIMARY PERITONEAL CARCINOMA OMNI 350 100ML. TECHNIQUE: Axial CT images were obtained through the abdomen and pelvis without IV contrast. All CT scans at this location are performed using CT dose reduction for ALARA by means of automated exposure control. COMPARISON: 07/24/2020 FINDINGS: LOWER CHEST: No significant abnormality. LIVER: No significant abnormality. GALLBLADDER: Cholecystectomy. BILE DUCTS: No significant abnormality. PANCREAS: No significant abnormality. SPLEEN: No significant abnormality. ADRENALS: No significant abnormality. RIGHT KIDNEY / URETER: No significant abnormality. LEFT KIDNEY / URETER: No significant abnormality. STOMACH / SMALL BOWEL: No significant abnormality. COLON: No significant abnormality. APPENDIX: No significant abnormality. PERITONEUM: No free fluid. No free air. No fluid collection. LYMPH NODES: No significant adenopathy. AORTA / ARTERIES: No significant abnormality. IVC / VEINS: No significant abnormality. URINARY BLADDER: No significant abnormality. REPRODUCTIVE ORGANS: No significant abnormality. ADDITIONAL FINDINGS: None. SKELETAL SYSTEM: No significant abnormality. IMPRESSION: 1. There is no obstruction, inflammation, or free air. There are no abnormal fluid collections. Signer Name: Jose Wilson MD Signed: 02/22/2021 2:24 PM Workstation Name: [id number]
== END 2021-02-22 10:37 | disposition home or self-care (01) ==
LOC: CT 10:36
PROVIDERS: ATTEND Internal Medicine Hematology & Oncology
DX: C48.1 Malignant neoplasm of specified parts of peritoneum (principal); M47.814 Spondylosis without myelopathy or radiculopathy, thoracic region; Z90.49 Acquired absence of other specified parts of digestive tract
CPT/HCPCS: 71250; 74176

== ENCOUNTER 2021-04-03 11:52 | Outpatient (CLI) | payer BC | END 2021-04-03 11:53 | disposition home or self-care (01) | LOC: ECHO 11:52 | DX: I07.1 Rheumatic tricuspid insufficiency (principal) | CPT/HCPCS: 93306 ==

== ENCOUNTER 2021-06-04 10:43 | Outpatient (CLI) | payer BC ==
[2021-06-04 11:34] LABS: Alanine Aminotransferase 15 units/L (7-56); BUN/Creatinine Ratio 17; Blood Urea Nitrogen 17 mg/dL (7-17); Calcium 9.5 mg/dL (8.4-10.2); HDL Cholesterol 69 mg/dL (40-59); Hemolysis Index 4; LDL Cholesterol,Direct 133 mg/dL (50-130)
== END 2021-06-04 10:44 | disposition home or self-care (01) ==
LOC: LAB 10:43
PROVIDERS: ATTEND Internal Medicine
DX: Z00.00 Encounter for general adult medical examination without abnormal findings (principal); Z13.1 Encounter for screening for diabetes mellitus; Z13.220 Encounter for screening for lipoid disorders; Z13.29 Encounter for screening for other suspected endocrine disorder
CPT/HCPCS: 36415; 80053; 80061; 83036; 84443

== ENCOUNTER 2021-06-19 08:33 | Outpatient (CLI) | payer BC | END 2021-06-19 08:34 | disposition home or self-care (01) | LOC: MAMMO 08:33 | PROVIDERS: ATTEND Obstetrics & Gynecology | DX: Z12.31 Encounter for screening mammogram for malignant neoplasm of breast (principal) | CPT/HCPCS: 77067 ==

== ENCOUNTER 2021-06-25 10:58 | Outpatient (CLI) | payer BC ==
[2021-06-25 12:04] LABS: Blood Urea Nitrogen 17 mg/dL (7-17)
--- NOTE | 2021-06-25 14:44 | Cat Scan Report ---
CT chest with contrast, abdomen, and pelvis INDICATION : Extraovarian peritoneal carcinoma. TECHNIQUE: 100 mL of intravenous contrast administered. All CT scans at this location are performed using CT dose reduction for ALARA by means of automated exposure control. Oral contrast was not admi nistered which limits evaluation of the gastrointestinal tract. COMPARISON: 02/22/2021, 07/24/2020, 01/26/2020. FINDINGS: CHEST: Lungs are clear without evidence of focal pulmonary consolidation or edema. No discrete pulmonary mas s or nodule. No pleural effusion or pneumothorax. Heart is within normal limits in terms of size. No evidence of pericardial effusion. No mediastinal o r axillary lymphadenopathy. ABDOMEN/PELVIS: No evidence of ascites. No peritoneal soft tissue mass or nodularity. Patient status post cholecystectomy. The liver, spleen, pancreas, adrenal glands, and kidneys are unr emarkable. Gastrointestinal tract shows no evidence of focal bowel wall thickening or distention. No pathologica lly enlarged lymph nodes within the abdomen and pelvis. The urinary bladder is normal in appearance. The appendix is not identified, but no inflammatory henry ges are noted in the region of the cecum. Osseous structures show no evidence of acute fracture or aggressive osseous destructive lesion. Bridg ing osteophytes within the mid and lower thoracic spine appear not significantly changed. IMPRESSION: Stable appearance of the chest, abdomen, and pelvis. No evidence of ascites or findings to suggest re sidual or recurrent malignancy. Signer Name: Forrest Salinas MD Signed: 06/25/2021 2:40 PM Workstation Name: [id number]
== END 2021-06-25 10:59 | disposition home or self-care (01) ==
LOC: CT 10:58
DX: C48.1 Malignant neoplasm of specified parts of peritoneum (principal); M25.78 Osteophyte, vertebrae; Z90.49 Acquired absence of other specified parts of digestive tract
CPT/HCPCS: 36415; 71260; 74177; 82565; 84520; Q9967

== ENCOUNTER 2021-09-02 11:22 | Outpatient (CLI) | payer BC ==
--- NOTE | 2021-09-02 13:33 | XRay Report ---
XR pelvis 1-2V INDICATION / CLINICAL INFORMATION: PAIN IN LEFT HIP. COMPARISON: None available. FINDINGS: BONES/JOINT(S): No acute fracture or subluxation. Mild bilateral hip DJD. No focal bone lesions. SOFT TISSUES: No significant abnormality. ADDITIONAL FINDINGS: None. Signer Name: Dharmesh Pascual MD Signed: 09/02/2021 1:29 PM Workstation Name: [id number]
== END 2021-09-02 11:23 | disposition home or self-care (01) ==
LOC: XRAY 11:22
PROVIDERS: ATTEND Orthopaedic Surgery
DX: M16.0 Bilateral primary osteoarthritis of hip (principal)
CPT/HCPCS: 72170

== ENCOUNTER 2021-09-18 10:35 | Outpatient (CLI) | payer BC ==
[2021-09-18 11:45] LABS: Blood Urea Nitrogen 19 mg/dL (7-17)
--- NOTE | 2021-09-18 13:27 | Cat Scan Report ---
CT CHEST, ABDOMEN, AND PELVIS WITH CONTRAST INDICATION / CLINICAL INFORMATION: C54.1 Malignant neoplasm of endometrium 100 ml omni 300 . TECHNIQUE: Axial CT images were obtained through the chest, abdomen, and pelvis after 100 cc Omnipaqu e [address] scans at this location are performed using CT dose reduction for BERTHA villa of automated exposure control. COMPARISON: CT chest abdomen and pelvis 06/25/2021 FINDINGS: CHEST LOWER NECK: Soft tissues of the lower neck including the thyroid demonstrate no significant abnormali ty evidence of acute pathology. THORACIC AORTA: No significant abnormality. PULMONARY ARTERY:No significant abnormality. HEART: No significant abnormality. CORONARY ARTERY CALCIFICATION: Moderate. MEDIASTINUM / MATT: No significant abnormality. ESOPHAGUS: No significant abnormality. LYMPH NODES: No adenopathy demonstrated within the axilla, matt, or mediastinum. LUNGS: No acute air space or interstitial disease. PLEURA: No pleural effusion. No pneumothorax. THORACIC SOFT TISSUES: No significant abnormality of the chest wall or upper thoracic musculature. ADDITIONAL CHEST FINDINGS: Stable appearance of Mediport right chest wall. ABDOMEN AND PELVIS LIVER: No significant abnormality. GALLBLADDER: Cholecystectomy. BILE DUCTS: No significant abnormality. SPLEEN: No significant abnormality. PANCREAS: No significant abnormality. ADRENALS: No significant abnormality. RIGHT KIDNEY / URETER: 2 mm stone anterior calyx lower pole. Right kidney otherwise unremarkable. LEFT KIDNEY / URETER: No significant abnormality. STOMACH / DUODENUM / SMALL BOWEL: No significant abnormality. COLON: No significant abnormality. APPENDIX: No significant abnormality. PERITONEUM: No free air or free fluid within the abdomen/pelvis. LYMPH NODES: No significant adenopathy. AORTA / ARTERIES: No significant abnormality. IVC / VEINS: No significant abnormality. URINARY BLADDER: No significant abnormality. REPRODUCTIVE ORGANS: Previous hysterectomy. Ovaries not identified. Ovaries are possibly absent. ADDITIONAL ABDOMINAL/PELVIC FINDINGS: None. SKELETAL SYSTEM: Moderate, stable bilateral femoral acetabular joint degenerative change and moderate multilevel facet arthropathy of the lower lumbar spine, also stable. No lesion suspicious for osseou s metastatic disease. IMPRESSION: 1. Stable postoperative appearance of the pelvis no recurrent mass or adenopathy. 2. No metastatic disease within the chest, abdomen, or pelvis. Signer Name: Jovany Andres II, MD Signed: 09/18/2021 1:16 PM Workstation Name: [id number]
== END 2021-09-18 10:36 | disposition home or self-care (01) ==
LOC: CT 10:35
DX: C54.1 Malignant neoplasm of endometrium (principal); I25.10 Atherosclerotic heart disease of native coronary artery without angina pectoris; M47.816 Spondylosis without myelopathy or radiculopathy, lumbar region; Z90.49 Acquired absence of other specified parts of digestive tract
CPT/HCPCS: 36415; 71260; 74177; 82565; 84520; Q9967

== ENCOUNTER 2021-11-22 11:02 | Outpatient (CLI) | payer BC ==
[2021-11-22 12:28] LABS: Blood Urea Nitrogen 23 mg/dL (7-17)
--- NOTE | 2021-11-22 15:35 | Cat Scan Report ---
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 COMPARE WITH PREVIOUS SCANS OMNI 300 100 ML. TECHNIQUE: Axial CT images were obtained through the chest, abdomen, and pelvis before and after 100 cc of Omnipaque [address] scans at this location are performed using CT dose reduction for ALARA by means of automated exposure control. COMPARISON: 09/18/2021 FINDINGS: HEART: No significant abnormality. CORONARY ARTERY CALCIFICATION: Moderate. THORACIC AORTA: No significant abnormality. MEDIASTINUM / MATT: Mediastinal structures remain unremarkable. Left Ivjkek-p-Lfmh remains in good po sition. No mass or adenopathy. PLEURA: No pleural effusion. No pneumothorax. LUNGS: No acute air space or interstitial disease. No suspicious pulmonary lesion. ADDITIONAL CHEST FINDINGS: None. LIVER: No significant abnormality. GALLBLADDER: Surgically removed. BILE DUCTS: No significant abnormality. PANCREAS: No significant abnormality. SPLEEN: No significant abnormality. ADRENALS: No significant abnormality. RIGHT KIDNEY / URETER: Tiny right renal stone is again noted, otherwise, unremarkable. LEFT KIDNEY / URETER: No significant abnormality. STOMACH and SMALL BOWEL: No significant abnormality. COLON: No significant abnormality. APPENDIX: Not confidently identified. PERITONEUM: No free fluid. No free air. No fluid collection. LYMPH NODES: No adenopathy is detected. AORTA / ARTERIES: No significant abnormality. IVC / VEINS: No significant abnormality. URINARY BLADDER: No significant abnormality. REPRODUCTIVE ORGANS: Stable hysterectomy changes. The vaginal cuff and adnexal regions are unremarkab le. ADDITIONAL FINDINGS: None. SKELETAL SYSTEM: Stable degenerative findings. No suspicious bony lesion is detected. IMPRESSION: Stable findings since 09/18/2021 exam. No evidence for disease recurrence or metastasis. Signer Name: Jose Ramon King Jr, MD Signed: 11/22/2021 3:31 PM Workstation Name: [id number]
== END 2021-11-22 11:03 | disposition home or self-care (01) ==
LOC: CT 11:02
DX: C48.1 Malignant neoplasm of specified parts of peritoneum (principal); I25.10 Atherosclerotic heart disease of native coronary artery without angina pectoris; N20.0 Calculus of kidney; M47.816 Spondylosis without myelopathy or radiculopathy, lumbar region; Z90.710 Acquired absence of both cervix and uterus
CPT/HCPCS: 36415; 71270; 74178; 82565; 84520; Q9967

== ENCOUNTER 2022-01-27 18:56 | Emergency (ER) | payer BC ==
--- NOTE | 2022-01-27 21:34 | XRay Report ---
RIGHT HIP 2 VIEW(S) INDICATION / CLINICAL INFORMATION: hip pain COMPARISON: 09/02/2021 FINDINGS: BONES / JOINT(S): No acute fracture or subluxation. Mild to moderate osteoarthrosis is noted at the h ips bilaterally. There is also degenerative change at the SI joints bilaterally. SOFT TISSUES: No significant abnormality. ADDITIONAL FINDINGS: None. IMPRESSION: 1. No acute findings. Signer Name: Celso Glynn MD Signed: 01/27/2022 9:29 PM Workstation Name: [id number]
--- NOTE | 2022-01-27 22:53 | Emergency Department Report ---
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 No numbness or tingling, no loss of bowel bladder, saddle paresthesia, no low back pain. No hematuria, no dysuria no fever, chills, sweats. Pain is sharp and achy in nature and worse with something position Consistency: constant Improves with: none Associated Symptoms: denies: chest pain, cough, nausea/vomiting - Related Data Home Medications Medication Instructions Recorded Confirmed Last Taken Lisinopril/Hydrochlorothiazide 20 mg PO DAILY 12/14/19 05/21/20 05/20/20 raNITIdine HCl [Zantac] 150 mg PO DAILY PRN 02/13/20 05/21/20 05/20/20 Clindamycin [Clindamycin CAP] 300 mg PO Q8H 04/23/20 05/21/20 05/20/20 Furosemide [Lasix TAB] 20 mg PO PRN PRN 04/23/20 05/21/20 05/20/20 dexAMETHasone [Dexamethasone] 2 tab PO BID 04/23/20 05/21/20 05/20/20 ondansetron HCL [Zofran] 4 mg PO Q4H PRN 04/23/20 05/21/20 05/20/20 Previous Rx's Medication Instructions Recorded Last Taken Type Ketorolac [Toradol] 10 mg PO Q6H PRN #20 01/27/22 Unknown Rx methOCARBAMOL [Robaxin TAB] 750 mg PO Q8H #14 01/27/22 Unknown Rx Allergies Allergy/AdvReac Type Severity Reaction Status Date / Time coconut oil Allergy Intermediate Hives Verified 01/27/22 19:40 Sulfa (Sulfonamide Allergy Intermediate Shortness Verified 01/27/22 19:40 Antibiotics) of Breath aspirin AdvReac Nausea Verified 01/27/22 19:40 ED Review of Systems ROS: Stated complaint: RIGHT HIP/LEG PAIN Other details as noted in HPI Comment: All other systems reviewed and negative ED Past Medical Hx - Past Medical History Previous Medical History?: Yes Hx Hypertension: Yes (took antihypertensives this morning) Hx Heart Attack/AMI: No Hx GERD: Yes Hx Liver Disease: No Hx Renal Disease: No Hx Sickle Cell Disease: No Hx Arthritis: Yes (JAMAR. KNEES) Hx Headaches / Migraines: Yes (MIGRAINES) Hx Asthma: Yes Hx Tuberculosis: Yes (POSITIVE SKIN TEST,TOOK TX,NEG CXR 2000) Hx HIV: No Additional medical history: sleep apena. hernia - Surgical History Past Surgical History?: Yes Hx Cholecystectomy: Yes Additional Surgical History: Surgery to remove adhesions - Social History Smoking Status: Never Smoker Substance Use Type: None - Medications Home Medications: Home Medications Medication Instructions Recorded Confirmed Last Taken Type Lisinopril/Hydrochlorothiazide 20 mg PO DAILY 12/14/19 05/21/20 05/20/20 History raNITIdine HCl [Zantac] 150 mg PO DAILY PRN 02/13/20 05/21/20 05/20/20 History Clindamycin [Clindamycin CAP] 300 mg PO Q8H 04/23/20 05/21/20 05/20/20 History Furosemide [Lasix TAB] 20 mg PO PRN PRN 04/23/20 05/21/20 05/20/20 History dexAMETHasone [Dexamethasone] 2 tab PO BID 04/23/20 05/21/20 05/20/20 History ondansetron HCL [Zofran] 4 mg PO Q4H PRN 04/23/20 05/21/20 05/20/20 History Ketorolac [Toradol] 10 mg PO Q6H PRN #20 01/27/22 Unknown Rx methOCARBAMOL [Robaxin TAB] 750 mg PO Q8H #14 01/27/22 Unknown Rx ED Physical Exam - General Limitations: No Limitations General appearance: alert, in no apparent distress - Head Head exam: Present: atraumatic, normocephalic - Eye Eye exam: Present: normal appearance - ENT ENT exam: Present: mucous membranes moist - Neck Neck exam: Present: normal inspection - Respiratory Respiratory exam: Present: normal lung sounds bilaterally. Absent: respiratory distress - Cardiovascular Cardiovascular Exam: Present: regular rate, normal rhythm. Absent: systolic murmur, diastolic murmur, rubs, gallop - GI/Abdominal GI/Abdominal exam: Present: soft, normal bowel sounds - Extremities Exam Extremities exam: Present: normal inspection, tenderness - Expanded Lower Extremity Exam Right Hip exam: Present: tenderness (On palpation along the trochanteric bursa sac and the anterior hip. No tenderness to the sacroiliac joint. Full range of motion of the wrist with discomfort pain with anterior lateral rotation gait is stable.), swelling, external rotation, internal rotation, pelvic stability. Absent: ecchymosis, deformity, crepidus, shortening - Back Exam Back exam: Present: normal inspection - Neurological Exam Neurological exam: Present: alert, oriented X3 - Psychiatric Psychiatric exam: Present: normal affect, normal mood - Skin Skin exam: Present: warm, dry, intact, normal color. Absent: rash ED Course Vital Signs 01/27/22 19:38 Temperature 98.2 F Pulse Rate 78 Respiratory 18 Rate Blood Pressure 132/72 [Left] O2 Sat by Pulse 98 Oximetry Critical care attestation.: If time is entered above; I have spent that time in minutes in the direct care of this critically ill patient, excluding procedure time. ED Disposition Clinical Impression: Bursitis of right hip Disposition: HOME / SELF CARE / HOMELESS Is pt being admited?: No Does the pt Need Aspirin: No Condition: Stable Instructions: Bursitis, Hip Bursitis Rehab-[facility] Prescriptions: methOCARBAMOL [Robaxin TAB] 750 mg PO Q8H #14 Ketorolac [Toradol] 10 mg PO Q6H PRN #20 PRN Reason: Pain Referrals: [facility] [Provider Group] - 3-5 Days
[2022-01-27 23:58] VITALS: BP 141/77
== END 2022-01-27 23:58 | disposition home or self-care (01) ==
LOC: ED 18:56
DX: M70.71 Other bursitis of hip, right hip (principal); I10 Essential (primary) hypertension; K21.9 Gastro-esophageal reflux disease without esophagitis; M19.90 Unspecified osteoarthritis, unspecified site; G43.909 Migraine, unspecified, not intractable, without status migrainosus; J45.909 Unspecified asthma, uncomplicated; Z79.899 Other long term (current) drug therapy; Z88.1 Allergy status to other antibiotic agents; Z91.02 Food additives allergy status; Z91.09 Other allergy status, other than to drugs and biological substances; Y93.89 Activity, other specified
CPT/HCPCS: 99283

== ENCOUNTER 2022-02-17 12:00 | Outpatient (CLI) | payer BC ==
--- NOTE | 2022-02-17 15:01 | XRay Report ---
XR knees standing AP Bilateral INDICATION / CLINICAL INFORMATION: M25.561 M25.562 PAIN IN BILATERAL KNEE. COMPARISON: None available. FINDINGS: BONES/JOINT(S): No acute fracture or subluxation. Mild osteoarthritis. No focal bone erosions or foca l osteopenia to suggest inflammatory arthropathy. SOFT TISSUES: No significant abnormality. ADDITIONAL FINDINGS: None. Signer Name: Dharmesh Pascual MD Signed: 02/17/2022 2:33 PM Workstation Name: [email or web address]
== END 2022-02-17 12:01 | disposition home or self-care (01) ==
LOC: XRAY 12:00
PROVIDERS: ATTEND Orthopaedic Surgery
DX: M17.0 Bilateral primary osteoarthritis of knee (principal)
CPT/HCPCS: 73565

== ENCOUNTER 2022-03-17 10:26 | Outpatient (CLI) | payer BC ==
--- NOTE | 2022-03-17 15:26 | Cat Scan Report ---
CT CHEST, ABDOMEN, AND PELVIS WITH CONTRAST INDICATION / CLINICAL INFORMATION: C48.1. Extraovarian primary peritoneal carcinoma TECHNIQUE: Axial CT images were obtained through the chest, abdomen, and pelvis after 100 cc of Omnip aque [address] scans at this location are performed using CT dose reduction for ALARA b y means of automated exposure control. COMPARISON: 11/22/2021 FINDINGS: HEART: No significant abnormality. CORONARY ARTERY CALCIFICATION: Moderate. THORACIC AORTA: No significant abnormality. MEDIASTINUM / MATT: No significant abnormality. PLEURA: Trace left pleural effusion has developed but no obvious pleural mass. No pneumothorax. LUNGS: No acute air space or interstitial disease. No suspicious pulmonary lesion is detected. ADDITIONAL CHEST FINDINGS: None. LIVER: No significant abnormality. GALLBLADDER: Surgically removed. BILE DUCTS: No significant abnormality. PANCREAS: No significant abnormality. SPLEEN: No significant abnormality. ADRENALS: No significant abnormality. RIGHT KIDNEY / URETER: No significant abnormality. LEFT KIDNEY / URETER: No significant abnormality. STOMACH and SMALL BOWEL: No significant abnormality. COLON: No significant abnormality. APPENDIX: No significant abnormality. PERITONEUM: No free fluid. No free air. No fluid collection. LYMPH NODES: No significant adenopathy. AORTA / ARTERIES: No significant abnormality. IVC / VEINS: No significant abnormality. URINARY BLADDER: No significant abnormality. REPRODUCTIVE ORGANS: Stable hysterectomy changes. ADDITIONAL FINDINGS: None. SKELETAL SYSTEM: No suspicious bony lesion is detected. IMPRESSION: 1. Overall stable findings since 11/22/2021. No visceral mass, bone lesion or adenopathy is detected. 2. New trace left pleural fluid without evidence of discrete pleural mass. Consider surveillance. Signer Name: Jose Ramon King Jr, MD Signed: 03/17/2022 3:22 PM Workstation Name: [id number]
== END 2022-03-17 10:27 | disposition home or self-care (01) ==
LOC: CT 10:26
DX: C48.1 Malignant neoplasm of specified parts of peritoneum (principal); I25.10 Atherosclerotic heart disease of native coronary artery without angina pectoris; J90 Pleural effusion, not elsewhere classified
CPT/HCPCS: 36415; 71260; 74177; 82565; 84520; Q9967